=== PATIENT | male | born 1950 | race Caucasian/White ===

== ENCOUNTER → 2019-09-22 | Outpatient (CLI) | payer SELFPAY | PROVIDERS: Family Provider Family Medicine; Visit Provider Family Medicine | DX: R07.9 Chest pain, unspecified (principal) | CPT/HCPCS: 78452; 93017; A9500 ==

== ENCOUNTER 2019-10-01 | Outpatient (CLI) | payer MEDICARE, OTHER, SELFPAY ==
[2019-10-01 11:48] LABS: Anion Gap 13.6 (5-19); Blood Urea Nitrogen 16 mg/dL (8-23); Calcium 10.2 mg/Dl (8.8-10.2); Carbon Dioxide 27 mmol/L (22-29); Chloride 101 mmol/L (98-107); Glomerular Filtration Rate 66.6 mL/min (90-130); Glucose 91 mg/dL (74-106); Potassium 4.6 mmol/L (3.5-5.1); Sodium 137 mmol/L (136-145)
[2019-10-01 11:49] LABS: Basophils # 0.1 10^3/uL (0.0-0.1); Basophils % 0.9 %; Eosinophils # 0.2 10^3/uL (0.0-0.8); Eosinophils % 1.8 %; Hematocrit 45.1 % (42.0-52.0); Hemoglobin 14.6 g/dL (11.7-16.6); Lymphocytes # 2.6 10^3/uL (0.8-4.8); Lymphocytes % 28.4 %; Mean Corpuscular HGB Conc 32.4 g/dL (30.0-36.0); Mean Corpuscular Hemoglobin 29.9 pg (28.0-34.0); Mean Corpuscular Volume 92.2 fL (80-94); Mean Platelet Volume 10.9 fL (7.4-10.4); Monocytes # 0.7 10^3/uL (0.2-0.9); Neutrophils # 5.6 10^3/uL (1.8-7.7); Neutrophils % 60.5 %; Nucleated Red Blood Cells % 0 %; Platelet Count 268 10^3/cmm (130-400); Red Blood Count 4.89 10^6/uL (4.1-5.3); Red Cell Distribution Width 13.1 % (12.1-15.1); White Blood Count 9.2 10^3/uL (4.0-10.0)
== END 2019-10-01 23:00 | disposition home or self-care (01) ==
LOC: LAB 05-09 13:50
PROVIDERS: Family Provider Family Medicine; PCP Family Medicine; Visit Provider Internal Medicine Cardiovascular Disease
DX: R94.39 Abnormal result of other cardiovascular function study (principal)
CPT/HCPCS: 80048; 85025

== ENCOUNTER → 2019-10-07 06:03 | Day surgery (SDC) | payer MEDICARE, OTHER, SELFPAY ==
[2019-10-07] VITALS (12 sets, daily range): BP systolic 95–156; BP diastolic 38–96; PULSE 52–68; RESP 12–21; TEMP 36.7; O2SAT 94–98; BMI 26.5
[2019-10-07] MEDS: diphenhydrAMINE 50 mg Capsule PO (06:32)
--- NOTE | 2019-10-07 07:00 | XACV_ITS ---
Ht: 178 cm Wt: 84 kg BSA: 2.05 m2 Gender: Male : 1950 Any Known Allergies: No known allergies Exam Priority: Routine Procedure(s): Procedure Description: Diagnostic procedure Procedure Description: Left Heart Catheterization Procedure Description: Left ventriculography Procedure Description: Coronary Angiography Diagnostic Cath Status: Elective Diagnostic Findings Patient with no history of heart disease who developed mild symptoms of chest discomfort with exercise but more profoundly shortness of breath. Stress testing abnormal with inferior wall hypokinesis and mild left ventricular dysfunction and suggestion of coronary artery disease. Angiography recommended. The left main coronary artery is normal. There is a right dominant system. The circumflex is nearly occluded proximally. There is barely NICK 1 flow in this vessel. There is a large first obtuse marginal branch which also has very poor flow. The remainder the vessel is the AV groove branch which is also a good sized vessel. The first marginal fills late due to the severity of the proximal circumflex lesion. The circumflex provides a minimal amount of the collateral flow to the distal right. The LAD is a large vessel. There is a 80% stenosis proximally. The remainder the vessel is normal and is a large vessel. The lesion is proximal at the point of the takeoff of the first septal branch. There is also a ramus intermedius branch which branches on its own into 2 moderate size vessels. The more inferior of these branches contains a 99% stenosis in the proximal portion. The right coronary artery is occluded in the midportion. There is collateral flow to the distal right primarily from the LAD and its branches. Interventional RX Recommendation: CABG Diagnostic RX Recommendation: CABG Anticoagulation: Heparin Ventriculography Ejection Fraction: 40.0 % Pressures Phase:Rest AO : 78 mmHg / 57 mmHg ( 68 mmHg ) @ 1:27:00 AM 82 mmHg / 56 mmHg ( 69 mmHg ) @ 1:32:00 AM 80 mmHg / 35 mmHg ( 55 mmHg ) @ 1:36:00 AM 81 mmHg / 42 mmHg ( 57 mmHg ) @ 1:40:00 AM 92 mmHg / 44 mmHg ( 65 mmHg ) @ 1:40:00 AM LV : 115 mmHg / -17 mmHg / @ 1:35:00 AM 93 mmHg / -31 mmHg / @ 1:36:00 AM Clinical Evaluation EBL: 5mL-10mL Procedural Details Cardiovascular Instability: No. Medication's Wasted: Heparin = 1000 units. Procedure Consent Obtained. Pre-Procedure Time Out. Identified patient by full name and date of as verbalized by the patient/guarantor. Does the consent match the physician's order: Yes. Accurate & Complete Informed Consent: Yes. Inpatient/Outpatient History & Physical on Chart: Yes. If H&P is completed, is and addenduem needed: No; If yes, is the addendum complete: N/A. Visualize and Verify Site with Patient/Guarantor: N/A. Relevant Radiology Images available: N/A. Pre-op teaching completed and patient verbalized understanding. The risks, benefits, and alternatives of sedation and/or procedure were discussed by physician. The patient agrees to continue. Procedure started. Correct patient, site and procedure confirmed by cath team. PERRLA. Strong, equal hand corporate safety manager bilaterally. Lungs clear x 5 lobes. IV Site on Arrival: 20 gauge in the left wrist. IV Fluids: 0.9% NaCl at KVO. 0 mL infused prior to dental laboratory technology teacher. Pre Procedural Pulses: bilateral radial was 3+. Oxygen started at 2liters/min via nasal canula. bilateral groins was prepped with chloroprep then draped in the usual sterile fashion. Baseline sample Acquired. HR: 63 BPM. Physician arrived. Equipment: 6F - Radial. Cardiac Cath Pack. ACIST Manifold Kit Model BT 2000. Heparinized Saline (2 units/mL), [address] mL bag[address] [facility] Clinical Fraility Score: 2: Well. Hand Marker Indications: Suspected CAD. Chest Pain Symptom Assessment: Atypical Angina. Physician scrubbed in. Immediate Pre-Procedure Time Out. Correct Patient: Yes; Correct Procedure: Yes; Correct Site: Yes; Correct Patient Position: Yes; Correct Supplies: Yes; Dried Flammable Prep: Yes; Blood Products Available: N/A;. Lidocaine 1% infiltrated to the right radial. Arterial access obtained. A TR 6FR Radial TIG 4.0 110cm was advanced over the wire and used for Left coronary angiography. Multiple views taken of left coronary artery. Catheter redirected to the RCA. Multiple views taken of right coronary artery. Catheter removed over the exchange wire. A CRD 6F 145 degree Pigtail 110cm Diagnostic Catheter was advanced over the wire and used for Ventriculography. EDP Sample taken: LV 115/-18,11; HR: 59 BPM; SpO2: 92%. LV gram performed in GANDHI @ 10 mL/second for a total of 30 mL. EDP Sample taken: LV 93/-32,-4; HR: 55 BPM; SpO2: 92%. Pullback taken: LV Off; AO Off; Mean: , Peak to Peak: , SEP: ; HR: 57 BPM; SpO2: 92%. Catheter removed over the exchange wire. Physician scrubbed out. A TR Band was successful obtaining hemostatsis at the Right Radial artery insertion site. TR band placed. Hemostasis obtained. Post Procedure: Pulses reassessed and unchanged. PERRLA. Strong, equal hand corporate safety manager bilaterally. No VTE prophylaxis required. Post-op diagnosis: CAD. Medication's Wasted: Lidocaine 1% = 18 mL. Medication's Wasted: Nitro = 49.8 mg. Total IV fluids: 50 mL. Contrast type used: Omnipaque 300 mgI/mL, 500 mL bottle. Complications: none. Estimated blood loss: 5mL-10mL. Procedure completed. Patient transferred by wheelchair to CPRU. Vital chart was stopped. Site: Right Radial artery Sheath Size: 6 Fr Hemostasis Method: TR Band Hemostasis Success: Successful Procedure Medications Start: 7:04 AM Stop: 7:04 AM Medication: Versed Amount: 1 mg Route: I.V. Start: 7:05 AM Stop: 7:05 AM Medication: Fentanyl Amount: 50 mcg Route: I.V. Start: 7:09 AM Stop: 7:09 AM Medication: Versed Amount: 1 mg Route: I.V. Start: 7:09 AM Stop: 7:09 AM Medication: Fentanyl Amount: 50 mcg Route: I.V. Start: 7:17 AM Stop: 7:17 AM Medication: Versed Amount: 1 mg Route: I.V. Start: 7:18 AM Stop: 7:18 AM Medication: Versed Amount: 1 mg Route: I.V. Start: 7:24 AM Stop: 7:24 AM Medication: Verapamil Amount: 5 mg Route: I.A. Start: 7:24 AM Stop: 7:24 AM Medication: Nitrogylcerin Amount: 200 mcg Route: I.A. Start: 7:27 AM Stop: 7:27 AM Medication: Heparin Amount: 5000 units Route: I.V. I, the attending physician, have reviewed and verified all procedure medications. Yes, all medications given per verbal order History/Risk Factors Hypertension: No Dyslipidemia: Yes Peripheral Arterial Disease (PAD): No Myocardial Infarction ([place]): No Obesity: No Renal Disease: No Tobacco Use: Never Prior Interventions PCI: No CABG: No Valve Surgery: No Report Signatures Finalized by:Dr. Raza Morris MD on 10/07/2019 8:41:27 AM
--- NOTE | 2019-10-07 08:00 | PC.NURSE ---
RECEIVED THE PATIENT BACK FROM [facility] S/P DI[facility]NOST[facility] VIA WHEELCHAIR. PATIENT ASSIST X 1 TO BED. CUFF SLITTER PLACED AND VITAL SIGNS OBTAINED. PATIENT DROWSY, BUT AWAKENS EASILY TO VERBAL STIMULI. ALERT AND ORIENTATED X 3. TR BAND INTACT TO THE RIGHT RADIAL. NO BLEEDING OR HEMATOMA NOTED. PALPABLE RADIAL PULSE. NS INFUSING TO LEFT WRIST PIV ORDERED. POST RADIAL ACTIVITY INSTRUCTIONS EXPLAINED TO THE PATIENT AND HIS SPOUSE. THEY VERBALIZED THEIR UNDERSTANDING. NO OTHER ASSESSMENT CHANGES.
--- NOTE | 2019-10-07 09:00 | PC.NURSE ---
LETTING THE AIR OUT OF THE TR BAND PER PROTOCOL. SPOUSE REMAINS AT BEDSIDE. NO OTHER ASSESSMENT CHANGES NOTED.
--- NOTE | 2019-10-07 10:00 | PC.NURSE ---
TR BAND OFF. NO BLEEDING OR HEMATOMA NOTED. SITE CLEANSED WITH WATER AND PATTED DRY. A LARGE BAND AID WAS PLACED AND SECURED WITH COBAN. POST RADIAL ACTIVITY INSTRUCTIONS GIVEN TO THE PATIENT, HIS SPOUSE, AND SON. THEY ALL VERBALIZED THEIR UNDERSTANDING. NO OTHER ASSESSMENT CHANGES NOTED AT THIS TIME.
--- NOTE | 2019-10-07 10:30 | PC.NURSE ---
DR. CARDOZA AT BEDSIDE TO DISCUSS RESULTS OF ANGIOGRAM AND FURTHER TREATMENT PLAN. SPOUSE AND SON REMAIN AT BEDSIDE.
== END | disposition home or self-care (01) ==
PROVIDERS: Family Provider Family Medicine; PCP Family Medicine; Visit Provider Internal Medicine Cardiovascular Disease
DX: I24.0 Acute coronary thrombosis not resulting in myocardial infarction (principal); R94.39 Abnormal result of other cardiovascular function study; R06.02 Shortness of breath; E78.5 Hyperlipidemia, unspecified
CPT/HCPCS: 36415; 93452; C1769; C1887; C1894; J1644; J2001; J2250; J3010; J3490; J7030; Q0163; Q9967

== ENCOUNTER 2019-11-10 14:15 | Outpatient (RCR) | payer MEDICARE, OTHER, SELFPAY | END 2019-11-21 23:59 | disposition home or self-care (01) | LOC: CR 14:15 | PROVIDERS: Family Provider Family Medicine; PCP Family Medicine; Referring Provider Internal Medicine Cardiovascular Disease; Visit Provider Internal Medicine Cardiovascular Disease | DX: Z95.1 Presence of aortocoronary bypass graft (principal) | CPT/HCPCS: 93798 ==

== ENCOUNTER 2019-11-23 10:46 | Outpatient (RCR) | payer MEDICARE, OTHER, SELFPAY | END 2019-12-22 23:59 | disposition home or self-care (01) | LOC: CR 10:46 | PROVIDERS: Family Provider Family Medicine; PCP Family Medicine; Referring Provider Internal Medicine Cardiovascular Disease; Visit Provider Internal Medicine Cardiovascular Disease | DX: Z95.1 Presence of aortocoronary bypass graft (principal) | CPT/HCPCS: 93798 ==

== ENCOUNTER 2021-10-10 07:51 | Outpatient (CLI) | payer MEDICARE, OTHER, SELFPAY ==
[2021-10-10 08:10] VITALS: BP 131/76; PULSE 56; RESP 14; TEMP 36.4; O2SAT 97; BMI 26.1
[2021-10-10 08:53] VITALS: BP 111/75; PULSE 51; RESP 16; TEMP 36.4; O2SAT 96
[2021-10-10 09:53] VITALS: BP 125/74; PULSE 50; RESP 16; TEMP 36.4; O2SAT 95
== END 2021-10-10 09:53 | disposition home or self-care (01) ==
LOC: OPS 07:56
PROVIDERS: PCP Family Medicine; Visit Provider Nurse Practitioner Family
DX: U07.1 COVID-19 (principal)
CPT/HCPCS: 96365

== ENCOUNTER → 2022-06-12 10:02 | Outpatient (BNVA) | payer MEDICARE, OTHER, SELFPAY | PROVIDERS: PCP Family Medicine; Visit Provider Internal Medicine Cardiovascular Disease | DX: I25.5 Ischemic cardiomyopathy (principal); E78.5 Hyperlipidemia, unspecified; Z95.1 Presence of aortocoronary bypass graft; E78.49 Other hyperlipidemia; R06.09 Other forms of dyspnea; I25.2 Old myocardial infarction; R94.31 Abnormal electrocardiogram [ECG] [EKG]; R00.1 Bradycardia, unspecified; I45.89 Other specified conduction disorders | CPT/HCPCS: 93005; 99214 ==

== ENCOUNTER 2022-06-14 09:42 | Outpatient (CLI) | payer MEDICARE, OTHER, SELFPAY ==
[2022-06-14 11:15] LABS: Alanine Aminotransferase 25 U/L (0-41); Albumin Level 4.2 g/dL (3.5-5.2); Alkaline Phosphatase 90 U/L (40-130); Aspartate Amino Transferase 25 U/L (0-40); Chol HDL Ratio 2.95 mg/dL (1.0-5.00); Cholesterol 118 mg/dL (0-200); Globulin 2.8 g/dL (1.3-4.6); HDL Cholesterol 40 mg/dL (60-100); LDL Cholesterol Calculated 63 mg/dL (50-129); LDL HDL Ratio 1.58 RATIO (0.00-3.22); Total Bilirubin 1.1 mg/dL (0.15-1.2); Triglycerides 73 mg/dL (0-150)
== END 2022-06-14 09:43 | disposition home or self-care (01) ==
PROVIDERS: PCP Family Medicine; Visit Provider Internal Medicine Cardiovascular Disease
DX: I25.5 Ischemic cardiomyopathy (principal); E78.5 Hyperlipidemia, unspecified
CPT/HCPCS: 36415; 80061; 80076

== ENCOUNTER 2022-07-11 10:12 | Outpatient (CLI) | payer MEDICARE, OTHER, SELFPAY ==
--- NOTE | 2022-07-11 10:00 | USCV_ITS ---
Romeo Payam Age: 72 Gender: M : 1950 Exam Date: 07/11/2022 10:27 Ordering Phys: Johnny Mccain MD ([email or web address]) Technologist: CASSI Exam Location: [facility] Indication: KUMAR BP: 116 / 68 HR: 53 Rhythm: Sinus Technical Quality: Adequate MEASUREMENTS (Male / Female) Normal Values 2D ECHO LVOT Diameter 2.0 cm LV Ejection Fraction MOD 2C 45.8 % LV Ejection Fraction 2C AL 45.8 % LA Diameter 4.4 cm LA Width 4.3 cm LA Height 5.8 cm RA Width 4.0 cm RA Height 5.0 cm Aorta at Sinotubular Diameter 2.5 cm IVC Diameter 1.7 cm M-MODE Aortic Annulus Diameter 3.6 cm LA Ao Ratio MM 1.1 MV E Point Septal Separation 2.8 cm DOPPLER AV Peak Velocity 135.0 cm/s LVOT Peak Velocity 99.0 cm/s AV Area Cont Eq vti 2.6 cm squared AV Area Cont Eq pk 2.3 cm squared MV Peak Velocity 95.0 cm/s MV Area PHT 1.7 cm squared Mitral E to A Ratio 1.1 MV E' Velocity 42.0 cm/s Mitral E to MV E' Ratio 5.3 Mitral E to LV E' Lateral Ratio 4.0 Mitral E to LV E' Septal Ratio 7.9 TR Peak Velocity 166.1 cm/s TR Peak Gradient 11.0 mmHg TR Mean Velocity 136.3 cm/s TR Mean Gradient 7.7 mmHg TR Velocity Time Integral 56.2 cm TV Peak E Velocity 59.0 cm/s Right Atrial Pressure 3.0 mmHg Pulmonary Artery Systolic Pressu 14.0 mmHg PV Peak Velocity 109.0 cm/s RV Acceleration Time 0.1 s RV Ejection Time 0.3 s RV AcT/ET 0.2 FINDINGS Left Ventricle Diffuse hypokinesia of the left ventricle with diminished ejection fraction of 46%. Mildly dilated LV cavity. Right Ventricle The right ventricle is normal in size and function. Right Atrium Mildly increased right atrial size. Left Atrium Moderately increased left atrial size. Mitral Valve Mild mitral valve regurgitation. Aortic Valve Trace to mild aortic valve regurgitation. Tricuspid Valve No gross abnormalities noted Pulmonic Valve Mild pulmonary valve regurgitation. Pericardium Normal pericardium without effusion. Aorta Normal aortic annulus size. IVC Normal inferior vena cava. CONCLUSIONS Diffuse hypokinesia of the left ventricle with diminished ejection fraction of 46%. Mildly dilated LV cavity. Moderately increased left atrial size. Mildly increased right atrial size. Mild mitral valve regurgitation. Trace to mild aortic valve regurgitation. Mild pulmonary valve regurgitation. Estimated pulmonary artery peak systolic pressure within normal limits There is no pericardial effusion. There are no intracardiac masses. No similar previous studies are available for comparison Dr Johnny Mccain MD FAC (Electronically Signed) Final Date: 11 July 2022 23:50 S
== END 2022-07-11 10:13 | disposition home or self-care (01) ==
LOC: RAD 10:12
PROVIDERS: PCP Family Medicine; Visit Provider Internal Medicine Cardiovascular Disease
DX: I25.5 Ischemic cardiomyopathy (principal); R06.09 Other forms of dyspnea; I08.0 Rheumatic disorders of both mitral and aortic valves
CPT/HCPCS: 93306

== ENCOUNTER → 2023-01-28 11:33 | Outpatient (BNVA) | payer MEDICARE, OTHER, SELFPAY | PROVIDERS: PCP Family Medicine; Visit Provider Internal Medicine Cardiovascular Disease | DX: I25.810 Atherosclerosis of coronary artery bypass graft(s) without angina pectoris (principal); Z95.1 Presence of aortocoronary bypass graft; I25.5 Ischemic cardiomyopathy; E78.49 Other hyperlipidemia; Z79.82 Long term (current) use of aspirin | CPT/HCPCS: 99213 ==

== ENCOUNTER → 2023-08-12 13:59 | Outpatient (BNVA) | payer MEDICARE, OTHER, SELFPAY | PROVIDERS: PCP Family Medicine; Visit Provider Internal Medicine Cardiovascular Disease | DX: I25.810 Atherosclerosis of coronary artery bypass graft(s) without angina pectoris (principal); I25.5 Ischemic cardiomyopathy; E78.49 Other hyperlipidemia; R06.09 Other forms of dyspnea | CPT/HCPCS: 99214 ==

== ENCOUNTER 2023-08-20 08:54 | Outpatient (CLI) | payer MEDICARE, OTHER, SELFPAY ==
--- NOTE | 2023-08-20 | ECG_ITS ---
[facility] Test Date: 2023-08-20 Pat Name: Payam Walters Department: Room: Gender: Male Block Tester: Michelle Philip : 1950 Requested By: Johnny Mccain Order Number: [id number] Abiodun MD: Marlen Branham M.D. Interpretive Statements NAME OF STUDY: EXERCISE SESTAMIBI STRESS TEST INDICATION: Shortness of breath Baseline blood pressure of 139/80 mm Hg, heart rate of 62 beats per minute and oxygen saturation of 98%. EKG showed sinus rhythm with first-degree AV block. 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 Nonspecific T wave inversion in lead III. ??? The patient exercised for 8 minutes and 40 seconds on a standard Mike protocol. Patient attained a maximum heart rate of 148 beats per minute(100% of the maximum predicted heart rate) with a blood pressure at the peak exercise of 184/90 mm Hg and oxygen saturation of 98%. The EKG at the peak exercise revealed sinus tachycardia with no significant ST-T wave changes. Isolated PVCs noted during exercise. Patient did not have any chest pain or any significant arrhythmis with the exercise. The study was terminated due to maximal effort. During the recovery phase, there were no new changes. Frequent isolated PVCs noted in recovery. ??? Blood pressure at the end of the recovery phase was 143/81 mm Hg with a heart rate of 85 beats per minute and oxygen saturation 98%. ??? CONCLUSION: 1. Normal EKG response to treadmill exercise. 2. No exercise-induced chest pain or cardiac arrhythmia. 3. Excellent exercise tolerance, attained a maximum of 10.2 METs. 4. Baseline hypertension with normal response to exercise. 5. Perfusion scan will be documented separately. Electronically Signed On 08-23-2023 9:43:56 HAND UMBRELLA TIPPER by Marlen Branham M.D. [email or web address]
[2023-08-20 08:59] VITALS: BMI 25.9
--- NOTE | 2023-08-20 09:13 | NMCV_ITS ---
NM eber perf SPECT r/s* [id number] Payam Walters Age: 73 Gender: M : 1950 Exam Date: 08/20/2023 09:49 Ordering Phys: Johnny Mccain MD ([email or web address]) Technologist: MCKINLEY Tong Exam Location: [facility] Indications: CORONARY ANGIOPLASTY STATUS STRESS TEST [facility] IMAGE PROTOCOL Rest/Stress 1 Exercise Day Radiopharmaceutical Dose (mCi) Administration Site Administered by Rest: Tc-99m 10.9 IV MCKINLEY Melendez Sestamibi Stress:Tc-99m 32.3 IV MCKINLEY Melendez Sestamibi Rest: 20-Aug-2023 60 Discovery 630 Stress: 20-Aug-2023 30 Discovery 630 Radiopharmaceutical was injected at 96 % maximum heart rate. Images obtained in supine and prone position. SPECT RESULTS Technical Quality: Excellent Raw Data Analysis: Normal Image Corrections: No attenuation or motion correction applied Summed Stress Score: 15 Summed Rest Score: 16 Summed Difference Score: 0 PERFUSION FINDINGS Moderate to large area of moderate to severely decreased tracer uptake was noted in the basal, mid and apical inferior; basal and mid inferolateral and apical lateral regions. No significant reversibility was noted in these regions. FUNCTIONAL RESULTS (calculated via Gated SPECT) Stress Image LV EF (%): 39 Stress EDV (mL):192 TID: 0.87 Stress ESV (mL):118 FUNCTIONAL FINDINGS: Segmental wall motion analysis revealed severe diffuse hypokinesia of the left ventricle severe hypokinesia of the septum, inferior wall, and the LV apex. IMPRESSIONS 1. Myocardial perfusion imaging revealing moderate to large area of persistent decreased tracer uptake involving the inferior ,inferolateral and apical regions suggesting myocardial scarring in the distribution of the right coronary artery/circumflex artery. 2. Diminished LV ejection fraction of 39%. 3. Multiple wall motion abnormalities as mentioned above 4. Moderately dilated LV cavity with an end-systolic volume of 118 mL 5. No significant coronary ischemia, based on the above findings Dr Johnny Mccain MD FAC (Electronically Signed) Final Date: 20 August 2023 14:52 S
[2023-08-20 10:53] VITALS: BP 134/79; PULSE 84
== END 2023-08-20 08:55 | disposition home or self-care (01) ==
PROVIDERS: PCP Family Medicine; Visit Provider Internal Medicine Cardiovascular Disease
DX: R06.02 Shortness of breath (principal); I51.89 Other ill-defined heart diseases
CPT/HCPCS: 36415; 78452; 93017; 99214; A9500

== ENCOUNTER → 2024-02-13 11:40 | Outpatient (BNVA) | payer MEDICARE, OTHER, SELFPAY | PROVIDERS: PCP Family Medicine; Visit Provider Internal Medicine Cardiovascular Disease | DX: I25.5 Ischemic cardiomyopathy (principal); I25.10 Atherosclerotic heart disease of native coronary artery without angina pectoris; R07.9 Chest pain, unspecified; E78.5 Hyperlipidemia, unspecified; I21.19 ST elevation (STEMI) myocardial infarction involving other coronary artery of inferior wall; E78.49 Other hyperlipidemia; R00.1 Bradycardia, unspecified; I49.3 Ventricular premature depolarization | CPT/HCPCS: 36415; 80048; 80061; 83735; 93005; 99214 ==

== ENCOUNTER 2024-02-14 08:12 | Outpatient (CLI) | payer MEDICARE, OTHER, SELFPAY ==
[2024-02-14 09:19] LABS: Chol HDL Ratio 2.72 mg/dL (1.0-5.00); Cholesterol 106 mg/dL (0-200); HDL Cholesterol 39 mg/dL (60-100); LDL Cholesterol Calculated 55 mg/dL (50-129); LDL HDL Ratio 1.41 RATIO (0.00-3.22); Triglycerides 60 mg/dL (0-150)
== END 2024-02-14 08:13 | disposition home or self-care (01) ==
LOC: LAB 08:15
PROVIDERS: PCP Family Medicine; Visit Provider Internal Medicine Cardiovascular Disease
DX: E78.49 Other hyperlipidemia (principal)
CPT/HCPCS: 36415; 80061

== ENCOUNTER 2024-02-26 06:50 | Outpatient (CLI) | payer MEDICARE, OTHER, SELFPAY ==
--- NOTE | 2024-02-26 07:00 | USCV_ITS ---
Payam Walters Age: 73 Gender: M : 1950 Exam Date: 02/26/2024 07:08 Ordering Phys: Johnny Mccain MD ([email or web address]) Technologist: CASSI Exam Location: [facility] Indication: DARRYL BP: 122 / 72 HR: 48 Rhythm: Sinus Technical Quality: Adequate MEASUREMENTS (Male / Female) Normal Values 2D ECHO LV Diastolic Diameter PLAX 6.8 cm 4.2 - 5.9 / 3.9 - 5.3 cm IVS Diastolic Thickness 1.2 cm 0.6 - 1.0 / 0.6 - 0.9 cm IVS Systolic Thickness 2.1 cm LVPW Diastolic Thickness 1.6 cm 0.6 - 1.0 / 0.6 - 0.9 cm LVPW Systolic Thickness 1.8 cm LVOT Diameter 2.0 cm LV Ejection Fraction 2D Teich 52.4 % LV Ejection Fraction MOD 2C 50.9 % LV Ejection Fraction 2C AL 53.5 % LA Diameter 4.7 cm RA Systolic Volume 4C AL 24.8 ml RA Systolic Volume 4C MOD 23.4 ml LA Sys Volume AL 34.7 cm cubed LA Sys Volume Index AL 17.2 cm cubed/m squared Aorta at Sinotubular Diameter 2.7 cm IVC Diameter 2.1 cm M-MODE LA Ao Ratio MM 1.5 AV Cusp Separation MM 2.2 cm DOPPLER AV Peak Velocity 244.0 cm/s LVOT Peak Velocity 103.0 cm/s AV Area Cont Eq vti 2.2 cm squared AV Area Cont Eq pk 1.4 cm squared MV Peak Velocity 64.0 cm/s MV Area PHT 3.4 cm squared Mitral E to A Ratio 1.1 TR Peak Velocity 176.0 cm/s TR Peak Gradient 12.4 mmHg TR Mean Velocity 133.0 cm/s TR Mean Gradient 8.0 mmHg TR Velocity Time Integral 50.2 cm TV Peak E Velocity 68.0 cm/s Right Atrial Pressure 3.0 mmHg Pulmonary Artery Systolic Pressu 15.4 mmHg PV Peak Velocity 106.0 cm/s RV Ejection Time 0.3 s FINDINGS Left Ventricle Severe hypokinesia of the basal inferior wall segment. LV ejection fraction of 52%. Mildly dilated left ventricle. Right Ventricle The right ventricle is normal in size and function. Right Atrium The right atrium is normal in size. Left Atrium Mildly increased left atrial size. Mitral Valve No gross abnormalities noted Aortic Valve Trace to mild aortic valve regurgitation. Tricuspid Valve No gross abnormalities noted Pulmonic Valve Mild pulmonary valve regurgitation. Pericardium Normal pericardium without effusion. Aorta Normal ascending aorta dimension. IVC Inferior vena cava not visualized. CONCLUSIONS Severe hypokinesia of the basal inferior wall segment. LV ejection fraction of 52%. Mildly increased left atrial size. Mildly dilated left ventricle. Trace to mild aortic valve regurgitation. Mild pulmonary valve regurgitation. There is no pericardial effusion. There are no intracardiac masses. Compared to the study from 07/11/2022, there is improvement of the LV ejection fraction from 46% to 52% Dr Johnny Mccain MD FACC (Electronically Signed) Final Date: 28 February 2024 13:09 S
== END 2024-02-26 06:51 | disposition home or self-care (01) ==
LOC: RAD 06:50
PROVIDERS: PCP Family Medicine; Visit Provider Internal Medicine Cardiovascular Disease
DX: I25.5 Ischemic cardiomyopathy (principal); I25.10 Atherosclerotic heart disease of native coronary artery without angina pectoris; I51.89 Other ill-defined heart diseases
CPT/HCPCS: 93306

== ENCOUNTER → 2024-08-26 10:15 | Outpatient (BNVA) | payer MEDICARE, OTHER, SELFPAY | PROVIDERS: PCP Family Medicine; Visit Provider Internal Medicine Cardiovascular Disease | DX: I25.10 Atherosclerotic heart disease of native coronary artery without angina pectoris (principal); E78.49 Other hyperlipidemia; I49.3 Ventricular premature depolarization; I25.5 Ischemic cardiomyopathy | CPT/HCPCS: 99214 ==

== ENCOUNTER → 2025-02-25 11:02 | Outpatient (BNVA) | payer MEDICARE, OTHER, SELFPAY | PROVIDERS: PCP Family Medicine; Visit Provider Nurse Practitioner Family | DX: I25.810 Atherosclerosis of coronary artery bypass graft(s) without angina pectoris (principal); I25.5 Ischemic cardiomyopathy; I49.3 Ventricular premature depolarization; R00.1 Bradycardia, unspecified; E78.49 Other hyperlipidemia; Z79.82 Long term (current) use of aspirin; Z95.1 Presence of aortocoronary bypass graft | CPT/HCPCS: 99214 ==